=== PATIENT | male | born 1955 | race Caucasian/White ===

== ENCOUNTER 2019-10-01 16:18 | Inpatient (IN) | payer OTHER ==
[~2019-10-01] VITALS: Ht 182.9 cm; Wt 194.6 kg
[~2019-10-01 16:18] MED LIST: "\\\"BP MED\\\""; "\\\"CHOLESTEROL MED\\\""; ACETAMINOPHEN325 M1 PO; ASPIRIN EC325 M1 PO; BISACODYL SUPP10 MG PO; CARDIZEM CD120 MG PO; CELEXA 20 MG TA20 MG PO; COLACE 100 MG100 MG PO; DILTIAZEM ER120 M1 PO; DUONEB 2.5-0.5 M3 ML INH; ENDOCET 10-3251 EACH PO; ENDOCET 5-3251 EACH PO; ENEMA133 ML RECTAL; ENEMEEZ283 MG/5 M RECTAL; ENOXAPARIN30 MG/0.3 SQ; FLOXIN OTI0.3 %/5 M1 OT; FUROSEMIDE 40 M40 M1 PO; GELUSIL PO; GLUCAGEN1 M2; GLUCOPHAGE1000 MG PO; GLUCOSE 40% GEL15 GM PO; HYDROCORTISONE30 G9 TOP; JUVEN PACKET1 EACH PO; K-DUR 20 MEQ T20 MEQ PO; LIPITOR20 MG PO; LOPRESSOR 50 MG50 M1 PO; LORAZEPAM 1 MG T1 M1 PO; MIRALAX255 GM PO; NICOTINE TRANSD14 M1 TOP; NORCO 5-325 TA1 EACH PO; NYSTATIN1 EA10 TOP; OMEPRAZOLE 20 M20 M1 PO; PHILLIPS PO; REGLAN 10 MG TA10 M1 PO; SANTYL OINTMENT30 G1; SINGULAIR 10 MG10 M1 PO; VANCO1GM IVPB
[2019-10-01 16:25] VITALS: BP 154/74
[2019-10-01 17:14] LABS: ABSOLUTE BASOPHILS 0.1 thou/uL (0.0-0.2); ABSOLUTE EOSINOPHILS 0.4 thou/uL (0.0-0.7); ABSOLUTE LYMPHOCYTES 1.2 thou/uL (0.8-5.3); ABSOLUTE MONOCYTES 0.8 thou/uL (0.0-1.2); ABSOLUTE NEUTROPHILS 6.8 thou/uL (1.6-8.1); BASOPHILS 0.9 %; HEMATOCRIT 40.9 % (42.0-52.0); HEMOGLOBIN 13.3 gm/dL (14.0-18.0); LYMPHOCYTES 13.2 %; MCHC 32.5 g/dL (28.0-37.0); MCV 76.8 fL (80.0-100.0); MONOCYTES 8.3 %; MPV 7.7 fl. (7.2-11.1); NUCLEATED RBCS 0 /100WBC; PLATELET COUNT* 358 thou/uL (150-400); POLYS 73.6 %; RBC 5.32 mil/uL (4.50-6.00); RDW-CV 18.8 % (10.5-14.5); WBC 9.2 thou/uL (4.0-11.0)
[2019-10-01 17:21] LABS: CALCIUM 8.2 mg/dL (8.5-10.1); CREATININE 0.9 mg/dL (0.6-1.3); POTASSIUM 4.3 mmol/L (3.5-5.1)
[2019-10-01 17:32] LABS: ALBUMIN 2.5 g/dL (3.4-5.0); TOTAL BILIRUBIN 0.2 mg/dL (<0.1-1.0)
[2019-10-01 17:34] LABS: BE 0.8 mmol/L (-2 to +3); PO2 72.5 mmHg (75.0-100.0)
[2019-10-01 17:37] LABS: PCO2 62.8 mmHg (35.0-45.0); pH 7.283 (7.340-7.450)
[2019-10-01 20:15] VITALS: BP 132/81
[2019-10-01 20:30] VITALS: BP 122/95
[2019-10-01] MEDS ORDERED: TRAMADOL 50 MG50 MG PO (22:12)
[2019-10-01] MEDS ORDERED: KEFLEX500 M2 PO (22:12)
[2019-10-01] MEDS ORDERED: REQUIP 1 MG TABL1 M1 PO (22:12)
[2019-10-01] MEDS ORDERED: LIPITOR80 MG PO (22:12)
[2019-10-01] MEDS ORDERED: NEURONTIN 300300 M1 PO (22:13)
[2019-10-01] MEDS ORDERED: HYDROCHLOROTHIA25 M1 PO (22:14)
[2019-10-01] MEDS ORDERED: PAMELOR25 MG PO (22:14)
[2019-10-02] VITALS: BP 116/56
[2019-10-02 08:05] VITALS: BP 103/53
--- NOTE | 2019-10-02 12:00 | NUR ---
ATTEMPTED TO MEET WITH PT, WAS ASLEEP WITH BIPAP ON. CALL PLACED TO DTR/SHAE. SHE PROVIDED INFO. PT LIVES ALONE, IS NORMALLY ABLE TO DO HIS OWN ADLS. USES WALKER AND HAS W/C, CPAP. SHAE STATED THEY DO NOT HAVE O2 OR NEBULIZER BUT PT HAD THEM IN THE PAST WHEN HE STAYED WITH HIS OTHER DTR/PASQUALE. SHE WAS UNSURE OF CPAP PROVIDER AND UNAWARE IF IT GETS SERVICED OR PT GETS NEW EQUIPMENT FOR IT. SHE STATES PT AMBULATES WITH WALKER. SHE IS AWARE OF HIS LEGS AND WOUNDS, STATED HE SAW A NEW ANGELICA BAUM IN THE CLIFFS IN [place] AND HE WAS SUPPOSED TO GET HH FOR WOUND CARE. BUT STATED THERE WAS A PHONE ISSUE AND IT NEVER HAPPENED. ASKED WHEN THAT WAS, SHE THOUGHT 'ABOUT 6 MONTHS AGO.' SHAE SAID SHE CHECKS ON PT FREQUENTLY AND ASSISTS HIM NEEDED, SHOPS, ETC. PT HAS BEEN TO [facility] IN PAST, HAD A TRACH PLACED IN 2011 BUT SHAE DIDN'T HAVE INFO ABOUT THAT OR HOW THEY MANAGE IT. WILL MEET WITH PT WHEN ABLE AND FOLLOW TO ASSIST WITH DC NEEDS.
[2019-10-02 12:46] VITALS: BP 123/101
[2019-10-02 13:21] LABS: BE 7.3 mmol/L (-2 to +3); pH 7.346 (7.340-7.450)
[2019-10-02 13:26] LABS: PCO2 66.4 mmHg (35.0-45.0); PO2 42.9 mmHg (75.0-100.0)
[2019-10-02 13:55] LABS: ABSOLUTE BASOPHILS 0.1 thou/uL (0.0-0.2); ABSOLUTE EOSINOPHILS 0.2 thou/uL (0.0-0.7); ABSOLUTE MONOCYTES 0.5 thou/uL (0.0-1.2); ABSOLUTE NEUTROPHILS 6.4 thou/uL (1.6-8.1); BASOPHILS 1.1 %; EOSINOPHILS 2.7 %; HEMATOCRIT 42.2 % (42.0-52.0); HEMOGLOBIN 13.3 gm/dL (14.0-18.0); LYMPHOCYTES 11.7 %; MCH 24.7 pg (26.0-34.0); MCHC 31.6 g/dL (28.0-37.0); MCV 78.1 fL (80.0-100.0); MONOCYTES 6.6 %; MPV 7.6 fl. (7.2-11.1); NUCLEATED RBCS 0 /100WBC; PLATELET COUNT* 333 thou/uL (150-400); POLYS 77.9 %; RBC 5.41 mil/uL (4.50-6.00); RDW-CV 18.8 % (10.5-14.5); WBC 8.3 thou/uL (4.0-11.0)
[2019-10-02 14:02] LABS: CALCIUM 8.6 mg/dL (8.5-10.1); POTASSIUM 4.4 mmol/L (3.5-5.1)
--- NOTE | 2019-10-02 14:17 | NUR ---
WOUND NURSE: PATIENT SEEN TO ADDRESS SKIN LESIONS ASSOCIATED WITH LYMPHEDEMA IN BILATERAL LEGS AND FEET. PATIENT CURRENTLY VERY UNCOMFORTABLE IN BED. PATIENT ASSISTED BACK IN BED WITH ASSISTANCE OF HIS STAFF NURSE, AMNA. CLEANSED BILATERAL FEET AND LE'S WITH SOAP AND WATER, RINSED WITH WATER, THEN PATTED DRY. APPLIED PHYTOPLEX AF TO SKIN FROM TOES TO KNEES. APPLIED XEROFORM GAUZE UNDER ABDS NEAR ANKLES (AREAS OF WEEPING COPIOUS AMOUTS OF CLEAR YELLOW DRAINAGE. WRAPPED WITH KERLEX ROLL GAUZE UNDER MARYLOU WRAPS. PATIENT'S LEGS ARE HEAVILY CRUSTED WITH QUINONES CRUSTS AND HAS RANDOM SMALL LINEAR FISSURES. THERE IS 2 TO 3 PLUS PERIPHERAL EDEMA, AND RUBOR, NO UNUSUAL WARMTH. RECOMMEND PATIENT ELEVATE BLE ABOVE HEART HE CAN TOLERATE MUCH POSSIBLE FOR EDEMA CONTROL. TOES ARE PINK AND CAPILLARY REFILL <3 SECONDS.
--- NOTE | 2019-10-02 17:18 | 2DMMODE ---
[place] [id number] 2 D/M-MODE ECHOCARDIOGRAM Name: MARY BLEVINS Room: [address] IN .R.#: [id number] Admission: 10/01/19 Attend Phys: Venita Garrison, Discharge: Date of : 55 Date of Service: 10/02/19 1718 Report #: [id number] THIS REPORT FOR: //name// APPROVED REPORT Study performed: 10/02/2019 16:21:44 EXAM: Comprehensive 2D, Doppler, and color-flow Echocardiogram Patient Location: Bedside BSA: 2.94 HR: 80 bpm BP: 123/101 mmHg Other Information Study Quality: Technically Limited Technically limited study due to body habitus, inability to position patient, patient on ventilator. Indications Dyspnea 2D Dimensions IVSd: 14.00 (7-11mm) LVOT Diam: 23.40 (18-24mm) LVDd: 53.69 mm PWd: 13.76 (7-11mm) Ascending Ao: 40.55 (22-36mm) LVDs: 36.83 (25-40mm) Aortic Root: 35.09 mm Volumes Left Atrial Volume (Systole) LA ESV Index: 37.70 mL/m2 Aortic Valve AoV Peak Jhoan.: 1.14 m/s AO Peak Gr.: 5.21 mmHg LVOT Max P.67 mmHg AO Mean Gr.: 3.21 mmHg LVOT Mean P.42 mmHg LVOT Max V: 1.47 m/s AO V2 VTI: 19.38 cm LVOT Mean V: 0.96 m/s JOSE (VTI): 5.41 cm2 LVOT V1 VTI: 24.36 cm Mitral Valve E/A Ratio: 1.10 MV Decel. Time: 126.10 ms MV E Max Jhoan.: 0.70 m/[place] [address] 2 D/M-MODE ECHOCARDIOGRAM Name: MARY BLEVINS Room: [address] IN .R.#: [id number] Admission: 10/01/19 Attend Phys: Venita Garrison, Discharge: Date of : 55 Date of Service: 10/02/19 1718 Report #: [id number] MV PHT: 36.57 ms MVA (PHT): 6.02 cm2 TDI E/Lateral E': 7.00 E/Medial E': 7.00 Medial E' Jhoan.: 0.10 m/s Lateral E' Jhoan.: 0.10 m/s Pulmonary Valve PV Peak Jhoan.: 1.31 m/s PV Peak Gr.: 6.84 mmHg Tricuspid Valve RAP Estimate: 20.00 mmHg TR Peak Gr.: 14.63 mmHg RVSP: 34.63 mmHg PA Pressure: 34.63 mmHg Left Ventricle The left ventricle is normal size. There is normal LV segmental wall motion. Mild concentric left ventricular hypertrophy. Left ventricular systolic function is normal. LVEF is 50-55%. Transmitral Doppler flow pattern suggests impaired LV relaxation. Right Ventricle Right ventricle is mildly dilated. The right ventricular systolic function is normal. Atria Left atrium is mildly dilated. Right atrium is mildly dilated. Aortic Valve Aortic valve is not well visualized. No aortic regurgitation is present. There is no aortic valvular stenosis. Mitral Valve The mitral valve is normal in structure. There is no mitral valve regurgitation noted. No evidence of mitral valve stenosis. Tricuspid Valve The tricuspid valve is normal in structure. Trace tricuspid regurgitation. Pulmonic Valve Pulmonic valve is not well visualized. There is no pulmonic [place] [address] 2 D/M-MODE ECHOCARDIOGRAM Name: MARY BLEVINS Serene Room: [address]#: [id number] Admission: 10/01/19 Attend Phys: Venita Garrison, Discharge: Date of : 55 Date of Service: 10/02/19 1718 Report #: [id number] Great Vessels The aortic root is normal in size. IVC is normal in size and collapses >50% with inspiration. Pericardium There is no pericardial effusion. <Conclusion> The left ventricle is normal size. Mild concentric left ventricular hypertrophy. Left ventricular systolic function is normal. LVEF is 50-55%. Transmitral Doppler flow pattern suggests impaired LV relaxation. Right ventricle is mildly dilated. Left atrium is mildly dilated. Right atrium is mildly dilated. Trace tricuspid regurgitation. IVC is normal in size and collapses >50% with inspiration. <ELECTRONICALLY SIGNED> By: Derek Arrieta MD, FACC 10/02/19 1718 17 17 Derek Arrieta MD, FACC /INF
--- NOTE | 2019-10-02 17:46 | NUR ---
PATIENT INCONTINENT THIS AM OF LARGE AMOUNTS OF URINE, PATIENT NOT UTILIZING URINAL OR CALLING FOR ASSISTANCE. DRESSINGS TO BLE'S SATURATED WITH URINE THIS AM. DR. RUST NOTIFIED AND OK TO PLACE LUDWIG DUE TO WOUNDS. BARIATIC BED ORDERED AND OBTAINED THIS EVENING. BIPAP IN PLACE, VBG'S OBTAINED THIS AFTERNOON AND PULMONARY PHYSICIAN AND DR. RUST AWARE OF RESULTS. IV SL, SCHED ABX INFUSED ORDERED. FLUCONAZOLE IV ORDERED AND INFUSING AT THIS TIME. SHARON FROM WOUND CARE HERE THIS AFTERNOON AND LEGS WASHED AND DRESSINGS APPLIED TO WOUNDS. PATIENT IN CHAIR THIS EVENING FOR DINNER. INSULIN SLIDING SCALE ORDERED, NO INSULIN REQUIRED. PATIENT REMAINS IN CONTACT PRECAUTIONS. ROUTE AIDE TRACING SR.
[2019-10-02 17:52] VITALS: BP 144/88
[2019-10-02 19:30] VITALS: BP 106/68
[2019-10-03] VITALS: BP 112/69
[2019-10-03 04:00] VITALS: BP 137/85
--- NOTE | 2019-10-03 05:54 | NUR ---
VSS. SEE MAR. SEE CHARTING. PROGRESSING TOWARDS GOALS. FALL PRECAUTIONS IN PLACE. HOURLY ROUNDING FOR SAFETY.
[2019-10-03 08:00] VITALS: BP 135/71
[2019-10-03 12:04] VITALS: BP 134/72
[2019-10-03 12:53] LABS: CALCIUM 8.4 mg/dL (8.5-10.1); CREATININE 1.1 mg/dL (0.6-1.3); POTASSIUM 4.6 mmol/L (3.5-5.1)
[2019-10-03 16:37] VITALS: BP 144/68
--- NOTE | 2019-10-03 19:14 | NUR ---
ASSUMED PT CARE REPORT RECEIVED FROM NURSE. PT IS AOX4. ON CPAP 6 L OF OXYGEN. PT REFUSES BIPAP. O2 SATURATION REMAINS THERAPEUTIC. STAYS IN CHAIR AND ATE ALL MEALS IN CHAIR POSITION. IV ABX GIVEN ORDERED. NO COMPLAINT. IV LINE PATENT. ACCUCHECK NO INUSLIN NEEDED. PT TRACH IS INTACT BUT SMELLS. RESPIRATORY THERAPIST CHANGED THE INNER CANULA TOHIS AFTERNOON. NO CAP TO BE POSITIONED IN TRACH PER PULMNOLOGIST WHO IS CONSULTED. CARDIZEM AND LASIX RESTARTED PER TODAY PER HOSPITALIST. CALL LIGHT AT REACH
[2019-10-03 19:30] VITALS: BP 122/69
[2019-10-03 19:59] LABS: PCO2 VENOUS 63.9 mmHg (41.0-51.0); PO2 VENOUS 39.5 mmHg (35.0-45.0)
[2019-10-04] VITALS: BP 123/69
[2019-10-04 04:00] VITALS: BP 113/92
--- NOTE | 2019-10-04 07:04 | NUR ---
VSS. SEE MAR. SEE CHARTING. FALL PRECAUTIONS IN PLACE. PROGRESSING TOWARDS GOALS. HOURLY ROUNDING FOR SAFETY.
[2019-10-04 08:10] VITALS: BP 118/65
--- NOTE | 2019-10-04 08:29 | CON ---
[address] [address] CONSULTATION Name: MARY BLEVINS Room: [address] IN M.R.#: [id number] Admission: 10/01/19 Attend Phys: Venita Garrison MD Discharge: Date of : 55 Report #: [id number] THIS REPORT FOR: //name// CC: Venita Pearce DATE OF SERVICE: 10/03/2019 INFECTIOUS DISEASE CONSULTATION ATTENDING PHYSICIAN: Dr. Garrison. REASON FOR EVALUATION: Bilateral lower extremity inflammatory eruption, likely component of skin and soft tissue infection with cellulitis and also has respiratory distress in the setting of chronic respiratory failure. HISTORY OF PRESENT ILLNESS: Chart reviewed, the patient examined. This is a 64-year-old with morbid obesity, this had been complicated by what appears to be a hypoventilation syndrome with hypercarbia, has longstanding tracheostomy ____ 6 years, although it is apparently not particularly functional, had progressive dyspnea, also noted increasing swelling and pain associated with his bilateral lower extremities. There was some weeping, did have some odor. It is not clear that he had fevers or chills. Denies chills, shakes, sweats. Denies significant gastrointestinal-related complaints, neither was evaluated. ABGs: pH initially 7.283, pCO2 of 62.8, pO2 of 72.5 that was on 4 liters. Chest x-ray showed chronic bilateral interstitial infiltrates, perhaps more prominent on the left. Lactic acid was normal at 1.4. Blood cultures are sterile thus far. Per wound care nurse, there are no significant wounds in the lower extremities. They have compression dressings on at the moment. There was odor that he describes as musty suggestive of perhaps Pseudomonas. He was empirically started on combination therapy with fluconazole, vancomycin, piperacillin and tazobactam. Presently sitting up in a chair. He notes he feels overall about the same as when he was admitted. He is generally lucid. ALLERGIES: None known. CURRENT MEDICATIONS: Include fluconazole, vancomycin, Zosyn, p.r.n. oxycodone, tramadol, was given Lasix as well. PAST MEDICAL HISTORY: As described above, history of hypertension, hypercholesterolemia, reflux, does have a longstanding tracheostomy that is apparently nonfunctional, obstructive sleep apnea, utilizes CPAP, diabetes mellitus, previous history of pneumonias, has cardiomyopathy, history of congestive heart failure, chronic venous stasis insufficiency, likely a degree [place] [address] CONSULTATION Name: MARY BLEVINS Serene Room: [address]#: [id number] Admission: 10/01/19 Attend Phys: Venita Garrison MD Discharge: Date of : 55 Report #: [id number] SOCIAL HISTORY: Smokes 1-1/2 packs a day. No illicit drug use. No current ethanol. FAMILY HISTORY: Noncontributory. REVIEW OF SYSTEMS: Otherwise, unremarkable 10-point review of systems with exception of the above. PHYSICAL EXAMINATION: GENERAL: He does appear chronically ill. He is obese, appears in [id number]-kccgzdab distress. VITAL SIGNS: Temperature 97.8, pulse 84, respirations 18, blood pressure 135/71. HEENT: Normocephalic. Extraocular muscles intact. NECK: Appears to be supple. Does have a trach that is somewhat dangling, secured by a collar. There is moderate to marked degree of debris associated with the ostomy site, is not a great degree of evident inflammation noted at the margins. LUNGS: Diminished overall, few scattered coarse breath sounds. HEART: Distant, appears to be regular. ABDOMEN: Morbidly obese. It is difficult to ascertain detailed exam. He is not apparently tender. EXTREMITIES: Lower extremities have compression dressings, still evidently markedly swollen. GENITOURINARY AND RECTAL: Deferred. LABORATORY DATA: Blood cultures sterile thus far. Echo showed EF of 50-55%, normal left ventricular systolic function, mild concentric left ventricular hypertrophy, mildly dilated right ventricle, no significant valvular abnormalities. TSH of 1.505. Prealbumin 12.1. Electrolytes: Sodium 143, potassium 4.4, chloride 103, bicarbonate is 37, anion gap of 3, BUN and creatinine 16 and 1.0, glucose of 101. Estimated GFR of 75. CBC: White count of 8.3, H and H 13.3 and 42.2, platelets of 333. Lactic acid 1.4. Chest x-ray shows chronic bilateral interstitial prominence with mild increase in left basilar opacities, question of pneumonitis. Liver functions otherwise unremarkable. Albumin of 2.5, total protein of 8.0. ASSESSMENT: Chronic respiratory failure, may have a component of pneumonitis, clearly he is less than baseline. I think it is reasonable to continue empiric antimicrobial therapy on that basis. Secondly, has bilateral lower extremity, likely multifactorial etiology for his inflammatory eruption, agree with compression. Continue efforts to elevate although apparently he needs to be primarily upright in order to breathe. They tried to optimize his nutritional status, they introduced some diuretic as well. At this point, he is not overtly toxic, certainly the tracheostomy seemingly is nonfunctional, would favor just removing it. He notes he has intermittently been followed and not currently. [address] [place] [address] CONSULTATION Name: MARY BLEVINS Room: [address] IN [facility]#: [id number] Admission: 10/01/19 Attend Phys: Venita Garrison MD Discharge: Date of : 55 Report #: [id number] We will pursue that immediately prior to his discharge. Again, he remains tenuous. We will monitor expectantly. <ELECTRONICALLY SIGNED> By: Gurdeep Lin MD 10/04/19 0829 0926 [id number] Lin MD /nt
[2019-10-04 12:51] VITALS: BP 117/76
--- NOTE | 2019-10-04 17:13 | NUR ---
PATIENT RESTING UP IN CHAIR. PATIENT REFUSES TO LIE IN BED. PATIENT DOES NOT KEEP FRRT ELEVATED. DRESSINGS CHANGED TO BILATERAL LEGS ORDERED. PATIENT HAS EXCELLENT APPETITE. PATIENT HAS COMPLAINTS OF PAIN, TREATED PARTIALLY WITH MEDICATION. PATIENT DENIES ANY NEEDS AT THIS TIME. CALL LIGHT WITHIN REACH.
[2019-10-04 19:18] VITALS: BP 114/80
[2019-10-04 20:00] VITALS: BP 135/76
[2019-10-05] VITALS: BP 115/72
[2019-10-05 04:00] VITALS: BP 116/61
--- NOTE | 2019-10-05 05:56 | NUR ---
PT RESTING IN BEDSIDE CHAIR WITH CPAP IN PLACE. PT WAS FOUND AT 0000 VS WITH CPAP OFF. PT EDUCATED ON IMPORTANCE OF CPAP AND AFTER THE ONE INCIDENT KEPT CPAP IN PLACE. PT C/O PRESSURE AT AROUND 0200 IN BLADDER AND FOUND THAT LUDWIG LINE HAD BECOME BLOCKED WITH SEDIMENT. LUDWIG TUBING FLUSHED AND IMMEDIATELY BECAME PATENT. PT IS NOW PROGRESSING TOWARDS GOALS APPROPRIATELY. CALL LIGHT IN REACH
[2019-10-05 08:00] VITALS: BP 125/57
[2019-10-05 12:12] VITALS: BP 114/73
--- NOTE | 2019-10-05 14:22 | NUR ---
CM spoke with Pt regarding skilled, Pt in agreement, referrals faxed to [facility] and [facility] per Pt/dtr request. Awaiting decision to accept and insurance auth once SNF is located.
[2019-10-05 15:09] LABS: HEMATOCRIT 36.5 % (42.0-52.0); HEMOGLOBIN 11.8 gm/dL (14.0-18.0); MCH 24.8 pg (26.0-34.0); MCHC 32.2 g/dL (28.0-37.0); MCV 76.8 fL (80.0-100.0); MPV 7.7 fl. (7.2-11.1); NUCLEATED RBCS 0 /100WBC; PLATELET COUNT* 288 thou/uL (150-400); RBC 4.75 mil/uL (4.50-6.00); RDW-CV 18.4 % (10.5-14.5); WBC 6.6 thou/uL (4.0-11.0)
[2019-10-05 15:20] LABS: ALBUMIN 2.2 g/dL (3.4-5.0); POTASSIUM 3.9 mmol/L (3.5-5.1); TOTAL BILIRUBIN 0.3 mg/dL (<0.1-1.0); TOTAL PROTEIN 7.4 g/dL (6.4-8.2)
[2019-10-05 15:40] LABS: ABSOLUTE EOSINOPHILS 0.6 thou/uL (0.0-0.7); ABSOLUTE LYMPHOCYTES 0.7 thou/uL (0.8-5.3); ABSOLUTE MONOCYTES 0.6 thou/uL (0.0-1.2); ABSOLUTE NEUTROPHILS 4.8 thou/uL (1.6-8.1); ANISOCYTOSIS Occasional; PLATELET ESTIMATE ADEQUATE
[2019-10-05 16:10] VITALS: BP 137/79
--- NOTE | 2019-10-05 18:10 | NUR ---
ASSUMED PT CARE REPORT RECEIVED FROM NURSE. PT IS AOX4. ON RA. O2 SATURATION IS 90%. NO COMPLAINT. ACCUCHECK. WEARS CPAP 6 L OF OXYGEN NEEDED/ DRESSING OF EMMA LOWER EXTREMITTIES ARE INTACT. ISOLATION MAINTAINED. DAUGHTER CAME IN AND OVERLOCK SEWING MACHINE OPERATOR TALKED ABOUT DISCAHRGE PLANING WITH PT IN ROOM. PT OK FOR SNF. WILL CONTINUE TO MONITOR. CALL LIGHT AT REACH.
[2019-10-05 19:45] VITALS: BP 144/76
[2019-10-06] VITALS: BP 125/66
[2019-10-06 04:00] VITALS: BP 121/59
--- NOTE | 2019-10-06 04:43 | NUR ---
ASSUMED CARE OF PT AT 1900. PT IS ALERT AND ORIENTED. VSS. PERJESSE. PT IS UP WITH STAND BY ASSIST. PT HAS A LUDWIG IN PLACE. PT IS IN SINUS RYTHM ON THE TELEMETRY. PT IS RESTING COMFORTABLY IN BED. RESPIRATIONS ARE EVEN AND NONLABORED. WILL CONTINUE TO MONITOR PT.
--- NOTE | 2019-10-06 07:34 | NUR ---
Rep from I to come and complete onsite for Pt this morning, to determine if they can accept for skilled. Waiting to hear back from [facility].
[2019-10-06 09:15] VITALS: BP 118/65
[2019-10-06 13:02] VITALS: BP 135/84
[2019-10-06 18:15] VITALS: BP 135/76
[2019-10-06 19:55] VITALS: BP 138/80
[2019-10-07 00:30] VITALS: BP 144/87
--- NOTE | 2019-10-07 03:23 | NUR ---
ASSUMED CARE OF PT AT 1900. PT IS ALERT AND ORIENTED. VSS. PERRLA. PT REPORTS SOME PAIN. PT RECIEVING OXYCODONE FOR PAIN. WOUND CARE COMPLETED TO LEGS BILAT. PT IS IN SINUS RYTHM ON THE TELEMETRY. PT IS RESTING COMFORTABLY IN BED. RESPIRATIONS ARE EVEN AND NONLABORED. WILL CONTINUE TO MONITOR PT.
[2019-10-07 04:00] VITALS: BP 121/57
[2019-10-07 08:00] VITALS: BP 95/71
[2019-10-07 12:00] VITALS: BP 72/44
[2019-10-07 14:56] LABS: ABSOLUTE BASOPHILS 0.1 thou/uL (0.0-0.2); ABSOLUTE EOSINOPHILS 0.9 thou/uL (0.0-0.7); ABSOLUTE MONOCYTES 0.7 thou/uL (0.0-1.2); ABSOLUTE NEUTROPHILS 4.2 thou/uL (1.6-8.1); BASOPHILS 1.1 %; EOSINOPHILS 13.4 %; HEMATOCRIT 37.2 % (42.0-52.0); HEMOGLOBIN 11.8 gm/dL (14.0-18.0); LYMPHOCYTES 14.4 %; MCH 24.3 pg (26.0-34.0); MCHC 31.7 g/dL (28.0-37.0); MCV 76.8 fL (80.0-100.0); MONOCYTES 10.4 %; MPV 7.6 fl. (7.2-11.1); NUCLEATED RBCS 0 /100WBC; PLATELET COUNT* 262 thou/uL (150-400); POLYS 60.7 %; RBC 4.85 mil/uL (4.50-6.00); RDW-CV 18.3 % (10.5-14.5); WBC 6.9 thou/uL (4.0-11.0)
[2019-10-07 15:26] LABS: ALBUMIN 2.2 g/dL (3.4-5.0); CALCIUM 8.2 mg/dL (8.5-10.1); CREATININE 1.1 mg/dL (0.6-1.3); POTASSIUM 4.4 mmol/L (3.5-5.1); TOTAL BILIRUBIN 0.2 mg/dL (<0.1-1.0); TOTAL PROTEIN 7.5 g/dL (6.4-8.2)
[2019-10-07 16:00] VITALS: BP 133/76
--- NOTE | 2019-10-07 18:06 | NUR ---
ASSUMED PT CARE REPORT RECEIVED FROM NURSE. PT IS AOX4. ON CPAP. O2 SATURATION IS 96%. VSS. BP SOFT. LUDWIG CATHETER IN PLACE. ACCUCHECK ACHS. STRICT I&O. SEE CHARTING. LEG DRESSING IS INTACT. TRACH IN PLACE. CALL LIGHT AT REACH. WILL CONTINUE TO MONITOR PT
[2019-10-07 20:00] VITALS: BP 137/71
[2019-10-08] VITALS: BP 130/62
--- NOTE | 2019-10-08 03:46 | NUR ---
ASSUMED PT CARE AT APPROX 1930. PT IS AWAKE AND ORIENTED X4. VSS ON ROOM AIR. SPLINE ROLLING MACHINE JOB SETTER IN PLACE TRACING SR. ASSESSMENT DONE AND CHARTED. PT C/O BILATERAL LOWER LEG PAIN. PAIN MEDS GIVEN PER DEC. PT IS ABLE TO SLEEP MOST OF THE NIGHT WITH HIS CPAP ON. CALL LIGHT WITHIN REACH. HIGH FALL PRECAUTIIONS IN PLACE. HOURLY ROUNDING DONE FOR SAFETY.
[2019-10-08 04:00] VITALS: BP 130/62
[2019-10-08 08:00] VITALS: BP 100/77
[2019-10-08 11:30] VITALS: BP 128/69
--- NOTE | 2019-10-08 11:59 | NUR ---
PER [facility] CAN ACCEPT PT AT [place] AND HAVE AUTH. UPDATED DR RUST AND PT.
--- NOTE | 2019-10-08 12:25 | NUR ---
ASSUMED OF PATIENT THIS AM AT 0730. PATIENT IS ALERT AND ORIENTED X 4. BRITTNEY C/O CONTINUED CHRONIC PAIN TO BILATERAL LE. PATIENT MEDICATED FOR PAIN X 1. PLANS TO DISCHARGE TO SNF THIS AFTERNOON. TELE SHOWS SR WITH PACS. NO FALLS OR INJURY.
[2019-10-08] MEDS ORDERED: ENDOCET 5-3251 EACH PO (15:23)
[2019-10-08] MEDS ORDERED: DIFLUCAN100 MG PO (15:25)
[2019-10-08] MEDS ORDERED: LEVAQUIN 750 M750 MG PO (15:28)
[2019-10-08] MEDS ORDERED: PAMELOR25 MG PO (15:32)
[2019-10-08 15:35] VITALS: BP 128/69
== END 2019-10-08 18:05 | DRG 871 ==
LOC: M.ERS 16:18 → M.TBA-ER 18:23 → M.2W 18:23
PROVIDERS: Emergency Medicine; Internal Medicine; Internal Medicine Pulmonary Disease; ADMIT Internal Medicine
PROC: 5A09357 Assistance with Respiratory Ventilation, Less than 24 Consecutive Hours, Continuous Positive Airway Pressure (ICD-10-PCS; principal; 2019-10-01)
PROC: 5A09457 Assistance with Respiratory Ventilation, 24-96 Consecutive Hours, Continuous Positive Airway Pressure (ICD-10-PCS; 2019-10-02)
PROC: 5A09357 Assistance with Respiratory Ventilation, Less than 24 Consecutive Hours, Continuous Positive Airway Pressure (ICD-10-PCS; 2019-10-07)
PROC: 5A09357 Assistance with Respiratory Ventilation, Less than 24 Consecutive Hours, Continuous Positive Airway Pressure (ICD-10-PCS; 2019-10-08)
DX: A41.9 Sepsis, unspecified organism (principal); J18.9 Pneumonia, unspecified organism; J96.21 Acute and chronic respiratory failure with hypoxia; J96.22 Acute and chronic respiratory failure with hypercapnia; L03.116 Cellulitis of left lower limb; L03.115 Cellulitis of right lower limb; I42.9 Cardiomyopathy, unspecified; I50.30 Unspecified diastolic (congestive) heart failure; Z68.43 Body mass index [BMI] 50.0-59.9, adult; J95.03 Malfunction of tracheostomy stoma; E78.00 Pure hypercholesterolemia, unspecified; K21.9 Gastro-esophageal reflux disease without esophagitis; I11.0 Hypertensive heart disease with heart failure; E11.9 Type 2 diabetes mellitus without complications; F17.210 Nicotine dependence, cigarettes, uncomplicated; Y82.8 Other medical devices associated with adverse incidents; Y83.8 Other surgical procedures as the cause of abnormal reaction of the patient, or of later complication, without mention of misadventure at the time of the procedure; E66.01 Morbid (severe) obesity due to excess calories; Z80.1 Family history of malignant neoplasm of trachea, bronchus and lung; Z86.14 Personal history of Methicillin resistant Staphylococcus aureus infection